=== PATIENT | female | born 1990 | race Caucasian/White ===

== ENCOUNTER 2020-05-01 06:01 | Inpatient (IN) ==
[2020-05-01] MEDS: LACTATED RINGERS 1,000 ML IV SCH ×2 (07:35→23:00)
[2020-05-01] MEDS ORDERED: BUTORPHANOL 2 MG/ML VIAL IV PRN (07:36)
[2020-05-01] MEDS ORDERED: AMPICILLIN INJ 2,000 MG in SODIUM CHLORIDE 0.9% 100 ML IV ONE (07:40)
[2020-05-01] MEDS: OXYTOCIN/LR 20 UNIT/1,000 ML BAG IV SCH (07:49)
[2020-05-01 07:52] LABS: Basophils % 0.3 % (0.0-0.8); Eosinophils % 0.4 % (0.00-10.9); Hematocrit 27.8 VOL% (35.7-47.0); Hemoglobin 8.4 GM/DL (12.0-16.0); Immature Granulocytes % 0.7 %; Immature Granulocytes Absolute 0.07 #; Lymphocytes # 2.7 10*3/uL (1.4-4.0); Lymphocytes % 25.8 % (21.3-54.2); Mean Corpuscular HGB Conc 30.2 GM/DL (32-36); Mean Corpuscular Volume 75.5 FL (87-102); Mean Platelet Volume 10.6 FL (9.6-12.0); Monocytes % 5.4 % (1.7-12.7); Neutrophils % 67.4 % (38.7-73.9); Platelet Count 334 T/CUMM (130-400); Red Blood Count 3.68 MC/CUMM (3.8-5.5); White Blood Count 10.5 T/CUMM (4-12)
[2020-05-01 08:10] LABS: Alanine Aminotransferase 14 U/L (13-56); Albumin 2.5 G/DL (3.4-5.0); Alkaline Phosphatase 141 U/L (45-117); Aspartate Amino Transferase 17 U/L (0-37); Bilirubin,Total < 0.39 MG/DL (0.2-1.0); Blood Urea Nitrogen 8 MG/DL (7-18); Calcium 8.6 MG/DL (8.5-10.1); Estimated Glom Filtration Rate 129 ML/MIN; Glucose 84 MG/DL (74-106); Total Protein 6.7 G/DL (6.4-8.3)
[2020-05-01] MEDS: ONDANSETRON 4 MG/2 ML VIAL IV PRN (08:32)
[2020-05-01] MEDS ORDERED: LACTATED RINGERS 1,000 ML IV ONE (09:23)
[2020-05-01] MEDS ORDERED: diphenhydrAMINE 50 MG/1 ML VIAL IV PRN ×2 (10:31)
[2020-05-01] MEDS ORDERED: ePHEDrine 50 MG/ML VIAL IV PRN (10:31)
[2020-05-01] MEDS ORDERED: CITRIC ACID/SODIUM CITRATE 30 ML UDCUP PO ONE (10:31)
[2020-05-01] MEDS ORDERED: FAMOTIDINE 20 MG/2 ML VIAL IV ONE (10:31)
[2020-05-01] MEDS ORDERED: NALOXONE 0.4 MG/ML VIAL IV PRN (10:31)
[2020-05-01] MEDS ORDERED: LACTATED RINGERS 250 ML IV PRN (10:31)
[2020-05-01] MEDS ORDERED: LACTATED RINGERS 1,000 ML IV SCH ×2 (11:00→15:00)
[2020-05-01] MEDS ORDERED: AMPICILLIN INJ 1,000 MG in SODIUM CHLORIDE 0.9% 100 ML IV SCH (12:00)
[2020-05-01] MEDS: fentaNYL 2 MCG/ROPIV 0.2% EPID 100 ML EPIDURAL SCH (12:28)
[2020-05-01] MEDS ORDERED: ceFAZolin 2,000 MG in PREMIX 1 EACH IV ONE (13:36)
[2020-05-01] MEDS ORDERED: CARBOPROST TROMETHAMINE 250 MCG/ML AMP IM ONE (13:38)
[2020-05-01] MEDS ORDERED: METHYLERGONOVINE 0.2 MG/1 ML AMP ONE (13:38)
[2020-05-01] MEDS ORDERED: OXYTOCIN/LR 20 UNIT/1,000 ML BAG IV ONE ×3 (13:38→14:49)
[2020-05-01] MEDS ORDERED: TRANEXAMIC ACID 1,000 MG/10 ML VIAL ONE (13:38)
[2020-05-01] MEDS ORDERED: miSOPROStoL 200 MCG TABLET ONE (13:38)
[2020-05-01 14:20] LABS: Bilirubin,Urine Negative (Negative); Blood, Urine Negative (Negative); Glucose,Urine (UA) Negative (Negative); Ketones,Urine Negative (Negative); Mucus,Urine Occasional /LPF (Occasional); Nitrite,Urine Negative (Negative); Protein,Urine Negative; RBC,Urine 1 /HPF (0-4); Urine Appearance CLEAR (Clear); Urine Color Straw (Yellow); Urine Specific Gravity 1.006 (1.001-1.035); Urine Urobilinogen < 2.0 EU/DL (0.2-1.0); WBC,Urine 1 /HPF (0-6)
[2020-05-01] MEDS ORDERED: fentaNYL 100 MCG/2 ML VIAL ONE (14:43)
[2020-05-01] MEDS ORDERED: MORPHINE 10 MG/10 ML VIAL ONE (14:43)
[2020-05-01] MEDS ORDERED: PHENYLEPHRINE 1 MG/10 ML SYRINGE IV ONE (14:44)
[2020-05-01] MEDS ORDERED: LIDOCAINE MPF 2% /EPI 20 ML VIAL ONE (14:45)
[2020-05-01] MEDS ORDERED: ONDANSETRON 4 MG/2 ML VIAL IV PRN (14:49)
[2020-05-01] MEDS ORDERED: RHO(D) IMMUNE GLOBULIN 300 MCG SYRINGE IM ONE (14:49)
[2020-05-01] MEDS ORDERED: ACETAMINOPHEN 325 MG TABLET PO PRN (14:49)
[2020-05-01] MEDS ORDERED: SIMETHICONE CHEW 80 MG TABLET PO PRN (14:49)
[2020-05-01] MEDS ORDERED: MAGNESIUM HYDROXIDE SUSP 30 ML UDCUP PO PRN (14:49)
[2020-05-01] MEDS ORDERED: ceFAZolin 1,000 MG in SYRINGE 1 EACH IV SCH (15:00)
[2020-05-01] MEDS ORDERED: ACETAMINOPHEN 1,000 MG/100 ML VIAL IV ONE (15:08)
[2020-05-01 15:12] LABS: Cord Venous Blood HCO3 20.8 MMOL/L; Cord Venous Blood PCO2 39.1 MMHG; Cord Venous Blood PO2 30.4 MMHG
[2020-05-01] MEDS: HYDROmorphone 2 MG/1 ML VIAL IV PRN ×2 (15:44→18:57)
[2020-05-01] MEDS: IBUPROFEN 800 MG TABLET PO PRN (16:54)
[2020-05-01] MEDS: oxyCODONE/ACETAMINOPHEN 5-325 MG TABLET PO PRN ×2 (16:54→21:40)
[2020-05-01] MEDS: LABETALOL 200 MG TABLET PO SCH ×2 (17:46→23:14)
[2020-05-02] MEDS: DOCUSATE SODIUM 100 MG CAPSULE PO SCH ×3 (00:35→21:23)
[2020-05-02] MEDS: IBUPROFEN 800 MG TABLET PO PRN ×2 (01:05→08:45)
[2020-05-02] MEDS: oxyCODONE/ACETAMINOPHEN 5-325 MG TABLET PO PRN ×4 (03:32→21:22)
[2020-05-02 06:11] LABS: Basophils % 0.2 % (0.0-0.8); Eosinophils # 0.1 10*3/uL (0.0-0.87); Eosinophils % 0.5 % (0.00-10.9); Hematocrit 24.3 VOL% (35.7-47.0); Hemoglobin 7.2 GM/DL (12.0-16.0); Immature Granulocytes % 0.6 %; Immature Granulocytes Absolute 0.06 #; Lymphocytes # 2.1 10*3/uL (1.4-4.0); Lymphocytes % 21.8 % (21.3-54.2); Mean Corpuscular HGB Conc 29.6 GM/DL (32-36); Mean Corpuscular Volume 75.5 FL (87-102); Mean Platelet Volume 11.3 FL (9.6-12.0); Neutrophils % 70.9 % (38.7-73.9); Platelet Count 288 T/CUMM (130-400); Red Blood Count 3.22 MC/CUMM (3.8-5.5); Red Cell Distribution Width 17.9 % (9.3-17.3); White Blood Count 9.5 T/CUMM (4-12)
[2020-05-02] MEDS: MULTIVITAMIN (PRENATAL) TABLET PO SCH (08:45)
[2020-05-02] MEDS ORDERED: INFLUENZA VIRUS VACCINE 0.5 ML SYRINGE IM ONE (09:00)
[2020-05-02] MEDS: LABETALOL 200 MG TABLET PO SCH ×2 (10:15→21:18)
[2020-05-02] MEDS: FERROUS SULFATE 325 MG TABLET PO SCH ×2 (11:58→21:18)
[2020-05-02] MEDS: fentaNYL 2 MCG/ROPIV 0.2% EPID 100 ML EPIDURAL SCH (13:14)
[2020-05-02] MEDS: OXYTOCIN/LR 20 UNIT/1,000 ML BAG IV SCH (13:14)
[2020-05-03] MEDS: oxyCODONE/ACETAMINOPHEN 5-325 MG TABLET PO PRN ×2 (03:54→08:19)
[2020-05-03] MEDS: ONDANSETRON 4 MG/2 ML VIAL IV PRN (04:12)
[2020-05-03] MEDS: LABETALOL 200 MG TABLET PO SCH (08:19)
[2020-05-03] MEDS: FERROUS SULFATE 325 MG TABLET PO SCH (08:19)
[2020-05-03] MEDS: MULTIVITAMIN (PRENATAL) TABLET PO SCH (08:20)
[2020-05-03] MEDS: DOCUSATE SODIUM 100 MG CAPSULE PO SCH (08:20)
[2020-05-03 09:08] VITALS: BP 134/92
== END 2020-05-03 13:20 | disposition home or self-care (01) | DRG 788 ==
LOC: N.LDOUT 06:01 → N.LD 06:02 → N.OB 21:35
PROVIDERS: ADMIT Obstetrics & Gynecology; ATTEND Obstetrics & Gynecology
PROC: LDCSECT (ICD-10-PCS; 2020-05-01 13:45)